=== PATIENT | male | born 1940 | race Caucasian/White ===

== ENCOUNTER → 2016-05-24 | Outpatient (CLI) | payer MEDICARE, OTHER ==
[~2016-05-24] MED LIST: CONTRAST GIVEN MC PRN; IOHEXOL 240 MG/ML 50ML VIAL. PO ONE; IOHEXOL 300 MG/ML 75 ML VIAL IV ONE
--- NOTE | 2016-05-24 14:22 | RAD ---
CT of the abdomen and pelvis with contrast, 05/24/2016: History: Left lower quadrant pain Multidetector CT imaging was performed following oral and IV administration of contrast. The gallbladder is surgically absent. No hepatic abnormality is seen. No pancreatic abnormality is detected. The spleen is of normal size. There is a 15 mm cyst in the upper pole of the right kidney. A tiny low-density lesion in the lower pole of the right kidney is too small to definitively characterize but is also probably a cyst. The kidneys show no evidence of obstruction. No adrenal abnormality is detected. There is minimal aortoiliac calcific plaquing without evidence of aneurysm. No abdominal or pelvic adenopathy is seen. The prostate gland is at the upper limits of normal in size. It contains several calcifications. Mild diffuse bladder wall thickening is probably accentuated by lack of bladder distention. The bowel loops are not dilated. No free fluid or free air is evident in the abdomen or pelvis. There are mild scattered degenerative changes in the spine. There appears to have been a previous posterior spinal fusion at the lumbosacral junction. IMPRESSION: 1. Small right renal cysts. 2. No acute abdominal or pelvic abnormality is detected. PQRS Compliance Statement: One or more of the following individualized dose reduction techniques were utilized for this examination: 1. Automated exposure control 2. Adjustment of the mA and/or kV according to patient size 3. Use of iterative reconstruction technique
== END | disposition home or self-care (01) ==
LOC: CT 08:49
PROVIDERS: ATTEND Family Medicine
DX: N28.1 Cyst of kidney, acquired (principal); I10 Essential (primary) hypertension
CPT/HCPCS: 74177; Q9966; Q9967